=== PATIENT | female | born 1985 | race Caucasian/White ===

== ENCOUNTER → 2017-11-22 14:07 | Outpatient (CLI) | payer BC, SELFPAY ==
[2017-11-26 17:03] LABS: HPV Reflexed? NOT INDICATED
== END ==
PROVIDERS: Visit Provider Obstetrics & Gynecology
DX: Z12.4 Encounter for screening for malignant neoplasm of cervix (principal)
CPT/HCPCS: 88175; G0145

== ENCOUNTER → 2018-02-20 10:15 | Outpatient (CLI) | payer BC, SELFPAY ==
[2018-02-21 09:43] LABS: Progesterone Level 0.94 ng/mL (See Comment)
== END ==
LOC: WOBLAB 10:16
PROVIDERS: Visit Provider Obstetrics & Gynecology
DX: N92.6 Irregular menstruation, unspecified (principal)
CPT/HCPCS: 36415; 84144

== ENCOUNTER → 2018-04-02 14:16 | Outpatient (CLI) | payer BC, SELFPAY | LOC: WOBLAB 14:18 | PROVIDERS: Visit Provider Obstetrics & Gynecology | DX: N97.0 Female infertility associated with anovulation (principal); Z79.899 Other long term (current) drug therapy | CPT/HCPCS: 36415; 84144 ==

== ENCOUNTER 2018-07-11 00:36 | Emergency (ER) | payer BC, SELFPAY ==
[2018-07-11 00:37] VITALS: BP 133/88; PULSE 83; RESP 16; TEMP 36.6; O2SAT 99; BMI 41.9
--- NOTE | 2018-07-11 00:52 | ED.DCSUM_ITS ---
History of Present Illness Chief Complaint: Allergic Reaction Informant: Patient Onset: Today - 4 hrs or so Context: Gradual Onset Timing: Continuous Quality: itchy rash/hives Location: arms, legs, chest Current Severity: Moderate Maximum Severity: Moderate Worsened by: nothing Relieved by: nothing Associated Symptoms: none Narrative: Patient has a nasal congestion and sinus pressure so she took 2 doses of over- the-counter cold/flu medication, one this morning and one late afternoon, and started reacting after the second dose. Each of the medications were different brands, and contain the same drugs, which were acetaminophen, guaifenesin, dextromethorphan, and phenylephrine. She has a known allergy to ibuprofen, but took none of that or any other [id number] medications. She has taking cold medicines in the past without developing a reaction. She has no dyspnea, peripheral swelling, lightheadedness, palpitations. Past Medical History Primary Care Physician: Care Physician,No Primary [Primary Care Provider] - Past Medical History: None Smoking Status: Never smoker Review of Systems General: Denies: Chills, Fever, Sweats Eyes: Denies: Visual changes - bilaterally, Diplopia ENT: Reports: - - nasal congestion, sinus pressure. Denies: Rhinorrhea, Sore throat Cardiovascular: Denies: Chest pain, Palpitations, Heart racing Respiratory: Reports: Cough - minor. Denies: Dyspnea, Sputum, Dyspnea on exertion Gastrointestinal: Denies: Abdominal pain, Nausea, Vomiting, Diarrhea, Melena, Hematochezia Genitourinary: Denies: Dysuria, Hematuria, Frequency Musculoskeletal: Denies: Swelling, Extremity Pain Skin: Reports: Rash Neurological: Denies: Headache, Weakness, Numbness Physical Exam Vital Signs/Narrative: Vital Signs Temp Pulse Resp BP Pulse Ox 07/11/18 00:37 97.9 F 83 16 133/88 H 99 Inital Vital Signs reviewed: Yes General: Well nourished, Well developed, - - well-appearing, nad Head: Normocephalic, Atraumatic Eyes: Perrl, EOMI ENT: Moist mucous membranes, No rhinorrhea, Nasal congestion - mild. no purulent d/c. Negative for: Sinus tenderness Neck: Supple, Nontender Cardiovascular: Regular rate, Regular rhythm, No murmurs. Negative for: Tachycardia Respiratory: No distress, CTA bilaterally, Chest nontender Skin: Normal color, Rash - scattered urticaria, mostly on LUE. no other lesions Neurological: Alert, Oriented x3, Cranial nerves II-XII grossly intact, Normal Strength, Normal Sensation Psychological: Normal affect Diagnostic/Tx/Re-eval - Medical Decision Making Certainly patient may be allergic to 1 of these 4 medications, or it may be something else environmental. There is no other obvious etiology. For these reasons, I recommend using Benadryl as needed for now and discontinuing these medications. She was given instructions to return, basically for anaphylactic symptoms, which she does not have at this time. ED Disposition - Plan for ED Patient: Disposition: Home or Assisted Living Chief Complaint: Allergic Reaction Diagnosis: Allergic urticaria Instructions: ED Drug React Allergic Referrals: Fernanda Baeza [NON-STAFF] - As Needed Additional Instructions: Benadryl 50 mg every 4 hours as needed for itching/rash. Discontinue further cold medications; you may try phenylephrine or pseudoephedrine for congestion. Do not try this until the hives resolve.
[2018-07-11] MEDS: DiphenhydrAMINE 25 MG Capsule 75 MG PO (00:55)
[2018-07-11 01:04] VITALS: BP 136/78; PULSE 88; RESP 16; O2SAT 98
== END 2018-07-11 01:06 | disposition home or self-care (01) ==
LOC: ED 01:01
PROVIDERS: Emergency Provider Emergency Medicine
DX: L50.0 Allergic urticaria (principal)
CPT/HCPCS: 99283